=== PATIENT | female | born 1940 | race Two or more races ===

== ENCOUNTER 2025-04-21 21:10 | Inpatient (IN) | payer MEDICARE, OTHER ==
[~2025-04-21] VITALS: Ht 154.4 cm; Wt 82.2 kg
[2025-04-21 22:16] LABS: PLATELET COUNT (AUTO) 213 K/uL (179-408); RED BLOOD CELL COUNT(AUTO) 4.02 MIL/uL (3.63-4.92); RED CELL DISTRIBUTION WIDTH 14.7 % (12.3-17.7); WHITE BLOOD COUNT (AUTO) 5.4 K/uL (3.8-11.8)
[2025-04-21 22:23] LABS: CREATININE 1.0 mg/dL (0.6-1.3); SODIUM SERUM 141 mmol/L (136-145); UREA NITROGEN, BLOOD 24 mg/dL (7-18)
[2025-04-21 22:33] LABS: NEUTROPHILS % (MANUAL) 0 % (42-75)
[2025-04-21 22:37] LABS: ETHANOL < 3 MG/DL (0-10)
[2025-04-21 22:39] LABS: ASPARTATE AMINOTRANSFERASE 21 U/L (15-37); TOTAL PROTEIN, SERUM 7.9 g/dL (6.4-8.2)
[2025-04-21] MEDS: IV NORMAL SALINE 500 ML BAG IV ONE (23:09)
[2025-04-22 00:42] LABS: *BILIRUBIN,URIN NEGATIVE (NEGATIVE); *BLOOD, URINE NEGATIVE (NEGATIVE); *CLARITY,URINE CLEAR (CLEAR); *COLOR,URINE YELLOW (YELLOW); *KETONES,URINE NEGATIVE (NEGATIVE); *PROTEIN,URINE NEGATIVE (NEGATIVE); *UROBILINOGEN,URINE 0.2 E.U./dl (NORMAL); LEUKOCYTE ESTERASE ,URINE NEGATIVE (NEGATIVE); NITRITE, URINE POSITIVE (NEGATIVE); UGLUCOSE NEGATIVE (NEGATIVE)
[2025-04-22 00:47] LABS: SQUAMOUS EPITHELIAL CELL,UR FEW /HPF (NONE SEEN)
[2025-04-22] MEDS ORDERED: REMEDY ESSENTIAL ZINC PASTE 113 GM TP PRN (01:30)
[2025-04-22] MEDS ORDERED: IV NS 1000 ML 1,000 ML IV SCH (01:30)
[2025-04-22] MEDS ORDERED: ONDANSETRON 4 MG/2 ML VIAL IV PRN (01:30)
[2025-04-22] MEDS ORDERED: VIT1CAPS44 PO (02:24)
[2025-04-22] MEDS ORDERED: OLAN2.5T3 PO (02:24)
[2025-04-22] MEDS ORDERED: GABA300C PO (02:24)
[2025-04-22] MEDS ORDERED: IRBE150T28 PO (02:24)
[2025-04-22] MEDS ORDERED: CYAN-28 PO (02:24)
[2025-04-22] MEDS ORDERED: LEVO112T5 PO (02:24)
[2025-04-22] MEDS ORDERED: MICO71PO11 TP (02:24)
[2025-04-22] MEDS ORDERED: FURO20TA4 PO (02:24)
[2025-04-22] MEDS ORDERED: DIVA250T PO (02:24)
[2025-04-22] MEDS ORDERED: POLY119P2 PO (02:24)
[2025-04-22] MEDS ORDERED: FAMO20TA8 PO (02:24)
[2025-04-22] MEDS ORDERED: ACET325T53 PO (02:24)
[2025-04-22] MEDS ORDERED: ENOXAPARIN SODIUM 40 MG/0.4 ML DISP.SYRIN SQ ONE (02:59)
[2025-04-22] MEDS: ENOXAPARIN SODIUM 40 MG/0.4 ML DISP.SYRIN SQ SCH (03:09)
[2025-04-22] MEDS ORDERED: LORAZEPAM 2 MG/1 ML VIAL ONE (05:15)
[2025-04-22] MEDS: LORAZEPAM 2 MG/1 ML VIAL IV ONE (05:18)
[2025-04-22 07:20] VITALS: BP 143/83
[2025-04-22 08:50] VITALS: BP 158/71; TEMP 98.6; O2SAT 94
[2025-04-22] MEDS: DIVALPROEX ER 250 MG TAB.SR.24H PO SCH (09:00)
[2025-04-22] MEDS: FUROSEMIDE 20 MG TABLET PO SCH (09:00)
[2025-04-22] MEDS: OLANZAPINE 2.5 MG TABLET PO SCH ×2 (09:00→17:00)
[2025-04-22] MEDS: LOSARTAN POTASSIUM 50 MG TABLET PO SCH ×2 (09:00→14:15)
[2025-04-22] MEDS: LEVOTHYROXINE SODIUM 112 MCG TABLET PO SCH (10:00)
[2025-04-22] MEDS ORDERED: IV NS 1000 ML 1,000 ML IV PRN (10:30)
[2025-04-22] MEDS: IV NS 1000 ML 1,000 ML IV PRN (10:33)
[2025-04-22] MEDS: PANTOPRAZOLE SODIUM 40 MG VIAL IV SCH (10:35)
[2025-04-22] MEDS: CEFTRIAXONE 1 G in IV DEXTROSE 5% 50 ML IV SCH (10:38)
[2025-04-22] MEDS ORDERED: DIVA250T4 PO (12:26)
[2025-04-22 15:10] VITALS: BP 161/70; TEMP 98.4; O2SAT 95
[2025-04-22 15:40] VITALS: BP 153/58; TEMP 97.3; O2SAT 97
[2025-04-22 19:10] VITALS: BP 124/58; TEMP 97.7; O2SAT 96
[2025-04-22] MEDS: DIVALPROEX 250 MG TABLET.DR PO SCH (21:00)
[2025-04-22] MEDS: GABAPENTIN 300 MG CAPSULE PO SCH (21:00)
[2025-04-22] MEDS: OLANZAPINE 10 MG VIAL IM PRN (22:58)
[2025-04-23 00:06] VITALS: BP 120/81; TEMP 97.4; O2SAT 96
[2025-04-23 06:48] VITALS: BP 109/80; TEMP 97.8; O2SAT 96
[2025-04-23 07:22] LABS: PLATELET COUNT (AUTO) 239 K/uL (179-408); RED BLOOD CELL COUNT(AUTO) 3.95 MIL/uL (3.63-4.92); RED CELL DISTRIBUTION WIDTH 14.2 % (12.3-17.7); WHITE BLOOD COUNT (AUTO) 7.6 K/uL (3.8-11.8)
[2025-04-23 07:35] VITALS: BP 137/65; TEMP 98.1; O2SAT 93
[2025-04-23 07:43] LABS: CREATININE 0.8 mg/dL (0.6-1.3); SODIUM SERUM 142 mmol/L (136-145); UREA NITROGEN, BLOOD 14 mg/dL (7-18)
[2025-04-23 11:04] VITALS: BP 160/51; TEMP 98.6; O2SAT 96
[2025-04-23] MEDS: LEVOTHYROXINE SODIUM 112 MCG TABLET PO ONE (11:19)
[2025-04-23] MEDS: ACETAMINOPHEN 650 MG SUPP.RECT RC PRN (12:16)
[2025-04-23 13:00] VITALS: BP 146/65; TEMP 98.6; O2SAT 96
[2025-04-23 19:39] VITALS: BP 183/72; TEMP 97.4; O2SAT 97
[2025-04-24 00:23] VITALS: BP 135/59
[2025-04-24 05:27] VITALS: BP 158/86; TEMP 96.1; O2SAT 97
[2025-04-24 07:21] VITALS: BP 129/60; TEMP 98.4; O2SAT 95
[2025-04-24 10:59] VITALS: BP 115/72; TEMP 98.2; O2SAT 95
[2025-04-24] MEDS ORDERED: NITR100C6 PO (13:22)
[2025-04-24 15:25] VITALS: BP 149/67; TEMP 98.5; O2SAT 92
[2025-04-25] MEDS ORDERED: PANTOPRAZOLE SODIUM 40 MG TABLET.DR PO SCH (07:00)
== END 2025-04-24 18:25 | DRG 689 ==
LOC: ER 21:10 → TELE3 04-22 08:16
PROVIDERS: ADMIT Registered Nurse Psychiatric/Mental Health; ATTEND Internal Medicine
PROC: 05HC33Z Insertion of Infusion Device into Left Basilic Vein, Percutaneous Approach (ICD-10-PCS; principal; 2025-04-22)
PROC: 05HB33Z Insertion of Infusion Device into Right Basilic Vein, Percutaneous Approach (ICD-10-PCS; 2025-04-23)
DX: N39.0 Urinary tract infection, site not specified (principal); G93.41 Metabolic encephalopathy; I50.32 Chronic diastolic (congestive) heart failure; F03.93 Unspecified dementia, unspecified severity, with mood disturbance; E03.9 Hypothyroidism, unspecified; F31.9 Bipolar disorder, unspecified; E78.00 Pure hypercholesterolemia, unspecified; I49.8 Other specified cardiac arrhythmias; I11.0 Hypertensive heart disease with heart failure; B96.89 Other specified bacterial agents as the cause of diseases classified elsewhere; Z78.1 Physical restraint status; Z79.899 Other long term (current) drug therapy; Z79.890 Hormone replacement therapy
CPT/HCPCS: 36415; 70030-TC; 70450; 71045; 83605; 83735; 84100; 84443; 84484; 85025; 87040; 87077; 87086; C1758; G0378; G0480; J0360; J0696; J1650; J2060; J2358; J2470; J3490; J7040